=== PATIENT | female | born 1950 | race Caucasian/White ===

== ENCOUNTER → 2018-02-23 | Outpatient (CLI) | payer MEDICARE, OTHER ==
[~2018-02-23] MED LIST: CETI5 PO; CONEST.625 PO; CYCL10 PO; HYDACE5325 PO; LEVSOD75; LEVSOD75 PO; NAPR500 PO; OMEPRAZOLE; OXYACE5T PO; PANT40 PO; ROSU5 PO; SERT50 PO; STOMACH MED; SYNTHROID; THYROID MED; VENL75 PO; VENL75ER PO
== END | disposition home or self-care (01) ==
LOC: OLS 15:43 → LAB SHORT 15:43
DX: N89.8 Other specified noninflammatory disorders of vagina (principal)
CPT/HCPCS: 87070; 87205

== ENCOUNTER 2018-03-22 11:45 | Day surgery (SDC) | payer MEDICARE, OTHER ==
[~2018-03-22] VITALS: Ht 162.6 cm; Wt 103.8 kg
[2018-03-22] MEDS ORDERED: AMIT50 PO (12:06)
[2018-03-22] MEDS ORDERED: Percocet 2.5-31 EACH PO (12:07)
== END 2018-03-22 14:34 | disposition home or self-care (01) ==
LOC: ORSCSDS 11:45
PROVIDERS: Internal Medicine Gastroenterology
PROC: 0DBL8ZX Excision of Transverse Colon, Via Natural or Artificial Opening Endoscopic, Diagnostic (ICD-10-PCS; principal; 2018-03-22 13:00)
DX: Z12.11 Encounter for screening for malignant neoplasm of colon (principal); D12.3 Benign neoplasm of transverse colon; K57.30 Diverticulosis of large intestine without perforation or abscess without bleeding; Z86.010 Personal history of colon polyps; Z80.0 Family history of malignant neoplasm of digestive organs
CPT/HCPCS: 88305; J2405; J7120

== ENCOUNTER 2019-09-09 23:00 | Emergency (ER) | payer MEDICARE, OTHER ==
[~2019-09-09] VITALS: Ht 162.6 cm; Wt 99.8 kg
[~2019-09-09 23:00] MED LIST changes: +AMIT50 PO; +Percocet 2.5-31 EACH PO
[2019-09-10] MEDS ORDERED: VENLAFAXINE HCL75 MG PO (02:02)
== END 2019-09-10 03:00 | disposition home or self-care (01) ==
LOC: ER 23:00
DX: M25.552 Pain in left hip (principal); Z91.041 Radiographic dye allergy status; Z88.5 Allergy status to narcotic agent; Z79.899 Other long term (current) drug therapy
CPT/HCPCS: 73502; 96372; 99283-25; J1885

== ENCOUNTER → 2022-10-21 | Outpatient (CLI) | payer MEDICARE, OTHER ==
[~2022-10-21] MED LIST changes: +VENLAFAXINE HCL75 MG PO
== END | disposition home or self-care (01) ==
LOC: LAB SHORT 11:45
DX: N89.8 Other specified noninflammatory disorders of vagina (principal); N94.9 Unspecified condition associated with female genital organs and menstrual cycle
CPT/HCPCS: 87070; 87077; 87106; 87147; 87186; 87205

== ENCOUNTER 2023-06-29 12:09 | Day surgery (SDC) | payer MEDICARE, OTHER ==
[~2023-06-29] VITALS: Ht 162.6 cm; Wt 101.6 kg
[2023-06-29 15:06] VITALS: BP 152/75
== END 2023-06-29 15:05 | disposition home or self-care (01) ==
LOC: ORSCSDS 12:09
PROVIDERS: Internal Medicine Gastroenterology
PROC: 0DJD8ZZ Inspection of Lower Intestinal Tract, Via Natural or Artificial Opening Endoscopic (ICD-10-PCS; principal; 2023-06-29 13:30)
DX: Z12.11 Encounter for screening for malignant neoplasm of colon (principal); Z86.010 Personal history of colon polyps; K57.30 Diverticulosis of large intestine without perforation or abscess without bleeding; K64.8 Other hemorrhoids; K21.9 Gastro-esophageal reflux disease without esophagitis; E66.9 Obesity, unspecified; Z68.38 Body mass index [BMI] 38.0-38.9, adult; Z79.899 Other long term (current) drug therapy
CPT/HCPCS: J2704; J7120

== ENCOUNTER → 2023-08-15 | Outpatient (CLI) | payer MEDICARE, OTHER ==
[2023-08-15 12:26] LABS: BASOPHILS ABSOLUTE AUTO 0.08 K/mm3 (0.00-0.23); BASOPHILS PERCENT AUTO 1 % (0-2); EOSINOPHILS ABSOLUTE AUTO 0.25 K/mm3 (0.00-0.68); EOSINOPHILS PERCENT AUTO 3 % (0-6); Hematocrit 42.7 % (33.0-51.0); Hemoglobin 14.9 g/dL (11.5-16.0); IMMATURE GRAN ABSOLUTE AUTO 0.01 K/mm3 (0.00-0.10); IMMATURE GRAN PERCENT AUTO 0 % (0-1); LYMPHOCYTES ABSOLUTE AUTO 2.28 K/mm3 (0.84-5.20); LYMPHOCYTES PERCENT AUTO 29 % (21-46); MONOCYTES ABSOLUTE AUTO 0.62 K/mm3 (0.16-1.47); MONOCYTES PERCENT AUTO 8 % (4-13); Mean Corpuscular HGB 31.9 pg (26.0-34.0); Mean Corpuscular HGB Conc 34.9 g/dL (31.5-36.5); Mean Corpuscular Volume 91 fL (80-100); Mean Platelet Volume 10.4 fL (9.1-12.4); NEUTROPHILS ABSOLUTE AUTO 4.67 K/mm3 (1.96-9.15); NEUTROPHILS PERCENT AUTO 59 % (41-73); Platelet Count 206 K/mm3 (150-400); RDW Coefficient Variation 13.1 % (11.7-14.2); RDW Standard Deviation 42.8 fL (35.1-46.3); Red Blood Cell Count 4.67 M/mm3 (3.80-5.20); White Blood Cell Count 7.91 K/mm3 (4.00-11.30)
[2023-08-15 12:38] LABS: Albumin/Globulin Ratio 1.1 (0.8-1.8); Bilirubin, Total 0.4 mg/dL (0.1-1.0); Bun/Creatinine Ratio 19.8 (12.0-20.0); Creatinine, Blood 0.96 mg/dL (0.40-1.00); Globulin, Blood 3.7 g/dL (2.2-4.0); Potassium, Blood 4.2 mmol/L (3.5-5.5); Total Protein, Blood 7.7 g/dL (6.4-8.2)
== END ==
LOC: LAB SHORT 12:22 → LAB 12:22
PROVIDERS: Physician Assistant Medical
DX: R10.32 Left lower quadrant pain (principal)
CPT/HCPCS: 80053; 85025

== ENCOUNTER 2024-09-28 11:35 | Day surgery (SDC) | payer MEDICARE, OTHER ==
[~2024-09-28] VITALS: Ht 162.6 cm; Wt 105.0 kg
[~2024-09-28 11:35] MED LIST changes: +Balanced Salt Epinephrine Irrigation Solution 500 mL IR SCH; +Lidocaine HCl/Pf 1% 5 ML VIAL XX SCH; +Mobic15 MG PO; +Moxifloxacin HCL 0.5 MG/0.1 ML 0.4MLSYR RIGHTEYE SCH; +NS 500 ML IV ONE; +OXAYDO5 M1; +PHENYLEPHRINE\\TROPICAMIDE\\TETRACAINE OPHTHALMIC DILATING SOLN RIGHTEYE PRN; +Percocet 5-3251 EACH PO; +Povidone-Iodine 450 DROP/30 ML Solution ONE; +Povidone-Iodine 450 DROP/30 ML Solution RIGHTEYE SCH; +Tetracaine HCl/Pf 0.5% Opth Soln 4 ml ONE; +Triamcinolone Inj Susp 40 MG / ML 1ML Vial INJ SCH; +Triamcinolone Inj Susp 40 MG / ML 1ML Vial ONE
[2024-09-28] MEDS ORDERED: NS 500 ML IV ONE (12:13)
[2024-09-28] MEDS ORDERED: Midazolam HCl 1MG / ML 2ML Vial ONE (12:34)
[2024-09-28 15:36] VITALS: BP 147/77
== END 2024-09-28 13:37 | disposition home or self-care (01) ==
LOC: ORSCSDS 11:35
PROVIDERS: Ophthalmology
PROC: 08RJ3JZ Replacement of Right Lens with Synthetic Substitute, Percutaneous Approach (ICD-10-PCS; principal; 2024-09-28 13:00)
DX: H25.813 Combined forms of age-related cataract, bilateral (principal); F32.A Depression, unspecified; F41.9 Anxiety disorder, unspecified; K21.9 Gastro-esophageal reflux disease without esophagitis; E66.9 Obesity, unspecified; Z68.39 Body mass index [BMI] 39.0-39.9, adult; Z79.899 Other long term (current) drug therapy
CPT/HCPCS: J2250; J3301; J7040; V2632

== ENCOUNTER 2024-10-06 07:28 | Day surgery (SDC) | payer MEDICARE, OTHER ==
[~2024-10-06] VITALS: Ht 162.6 cm; Wt 105.5 kg
[~2024-10-06 07:28] MED LIST changes: +Lidocaine HCl/Pf 1% 5 ML VIAL ONE; +Moxifloxacin HCL 0.5 MG/0.1 ML 0.4MLSYR LEFTEYE SCH; -Moxifloxacin HCL 0.5 MG/0.1 ML 0.4MLSYR RIGHTEYE SCH; -NS 500 ML IV ONE; +PHENYLEPHRINE\\TROPICAMIDE\\TETRACAINE OPHTHALMIC DILATING SOLN LEFTEYE PRN; -PHENYLEPHRINE\\TROPICAMIDE\\TETRACAINE OPHTHALMIC DILATING SOLN RIGHTEYE PRN; +Povidone-Iodine 450 DROP/30 ML Solution LEFTEYE SCH; -Povidone-Iodine 450 DROP/30 ML Solution ONE; -Povidone-Iodine 450 DROP/30 ML Solution RIGHTEYE SCH; -Tetracaine HCl/Pf 0.5% Opth Soln 4 ml ONE
[2024-10-06] MEDS ORDERED: AMIT50 PO (08:19)
[2024-10-06] MEDS ORDERED: Midazolam HCl 1MG / ML 2ML Vial ONE (08:55)
[2024-10-06 09:37] VITALS: BP 147/71
== END 2024-10-06 09:35 | disposition home or self-care (01) ==
LOC: ORSCSDS 07:28
PROVIDERS: Ophthalmology
PROC: 08RK3JZ Replacement of Left Lens with Synthetic Substitute, Percutaneous Approach (ICD-10-PCS; principal; 2024-10-06 09:00)
DX: H25.812 Combined forms of age-related cataract, left eye (principal); Z96.1 Presence of intraocular lens; F41.9 Anxiety disorder, unspecified; F32.A Depression, unspecified; K21.9 Gastro-esophageal reflux disease without esophagitis; E66.9 Obesity, unspecified; Z68.39 Body mass index [BMI] 39.0-39.9, adult; Z79.899 Other long term (current) drug therapy
CPT/HCPCS: J2003; J2250; J3301; V2632

== ENCOUNTER 2025-03-28 09:25 | Day surgery (SDC) | payer MEDICARE, OTHER ==
[2025-03-28] VITALS (20 sets, daily range): BP systolic 106–165; BP diastolic 47–91
[~2025-03-28] VITALS: Ht 162.6 cm; Wt 102.8 kg
[~2025-03-28 09:25] MED LIST changes: -Balanced Salt Epinephrine Irrigation Solution 500 mL IR SCH; +Calcium Carbon500 MG PO; -Lidocaine HCl/Pf 1% 5 ML VIAL ONE; -Lidocaine HCl/Pf 1% 5 ML VIAL XX SCH; -Moxifloxacin HCL 0.5 MG/0.1 ML 0.4MLSYR LEFTEYE SCH; -PHENYLEPHRINE\\TROPICAMIDE\\TETRACAINE OPHTHALMIC DILATING SOLN LEFTEYE PRN; -Povidone-Iodine 450 DROP/30 ML Solution LEFTEYE SCH; +SERT25 PO; -SERT50 PO; -Triamcinolone Inj Susp 40 MG / ML 1ML Vial INJ SCH; -Triamcinolone Inj Susp 40 MG / ML 1ML Vial ONE; +VITAMIN K2100 MCG; +Vitamin D1000 UNI1 PO
[2025-03-28] MEDS ORDERED: Lactated Ringer's 1,000 ML IV SCH ×2 (10:15→15:55)
[2025-03-28] MEDS ORDERED: OxyCODONE HCL 10 MG TABCR PO SCH (10:15)
[2025-03-28] MEDS ORDERED: Acetaminophen 500 MG Tab PO SCH ×2 (10:15→16:00)
[2025-03-28] MEDS ORDERED: Chlorhexidine Mouth Care 15 ML UDC MT SCH (10:15)
[2025-03-28] MEDS ORDERED: CeFAZolin Sodium 2,000 MG in NS 100 ML IV SCH ×3 (10:15→21:00)
[2025-03-28] MEDS ORDERED: Ropivacaine 0.5% HCl/Pf 123.125 MG,EPINEPHrine HCL 0.25 MG,Ketorolac Tromethamine 15 MG... INFIL SCH (10:15)
[2025-03-28] MEDS ORDERED: Tranexamic Acid 100 ML IV SCH (10:18)
[2025-03-28] MEDS ORDERED: propofoL 20 ML IV ONE (12:35)
[2025-03-28] MEDS ORDERED: Midazolam HCl 1MG / ML 2ML Vial ONE (12:36)
[2025-03-28] MEDS ORDERED: FentaNYL Citrate 50 MCG/ML 2 ML Injection ONE ×2 (12:36→15:26)
[2025-03-28] MEDS ORDERED: HYDROmorphone HCl/Pf 1MG SYR ONE ×2 (13:35→15:34)
[2025-03-28] MEDS ORDERED: Ondansetron HCl 2 MG / ML 2ML Vial ONE (13:38)
[2025-03-28] MEDS ORDERED: Ketorolac Tromethamine 30mg Vial ONE (13:38)
[2025-03-28] MEDS ORDERED: Dexamethasone Sod Phos 10 MG/ML 1ML VIAL ONE (13:38)
[2025-03-28] MEDS ORDERED: Sugammadex Sodium 200 MG/2ML SDV (100 MG/ML) ONE (13:39)
[2025-03-28] MEDS ORDERED: Phenylephrine HCl 100 MCG/ML-NS 10MLSYR (1MG/10ML) ONE (14:22)
[2025-03-28] MEDS ORDERED: Promethazine HCl 25 MG Tab PO PRN (15:55)
[2025-03-28] MEDS ORDERED: DiphenhydrAMINE HCL 25 MG Cap PO PRN (15:55)
[2025-03-28] MEDS ORDERED: HYDROmorphone HCl/Pf 1MG SYR IV PRN (15:55)
[2025-03-28] MEDS ORDERED: Metoclopramide HCl 5MG / ML 2ML Vial IV PRN (15:55)
[2025-03-28] MEDS ORDERED: OxyCODONE HCL 5 MG TAB PO PRN ×2 (15:55)
[2025-03-28] MEDS ORDERED: Ondansetron HCl 2 MG / ML 2ML Vial IV PRN (15:55)
--- NOTE | 2025-03-28 16:20 | NUR ---
ARRIVAL TO SURGICAL UNIT ARRIVED TO UNIT VIA HOSP BED. HRR, LUNGS CLEAR. PT STATES PAIN 6, MEDICATED PER EMAR. INCISION SITE WNL, AQUACEL DRESSING WITH MAGALI WRAP COVERING INCISION, NO DRAINAGE. COLD THERAPY APPLIED. SNACKS AND DRINKS GIVEN.
[2025-03-28] MEDS ORDERED: Ketorolac Tromethamine 30mg Vial IV SCH (18:00)
[2025-03-28] MEDS ORDERED: ASPI81CH PO (18:30)
--- NOTE | 2025-03-28 19:01 | NUR ---
DISCHARGE SUMMARY PT TOLERATING FLUIDS AND FOOD WELL. PAIN CONTROLLED WELL. AMBULATED IN HALLWAY w/ WALKER. VOIDED SUCCESSFULLY. PT COMFORTABLE WITH AMBULATION FOR HOME. INCISION SITE WNL, AQUACEL AND MAGALI BANDAGE WNL. AQUACEL DRESSINGS GIVEN. DC EDUCATION DISCUSSED AND GIVEN. PT ESCORTED OUT VIA WC.
[2025-03-28] MEDS ORDERED: Docusate Sodium 100 MG Cap PO SCH (21:00)
[2025-03-29] MEDS ORDERED: Aspirin 81 MG Chew PO SCH (09:00)
== END 2025-03-28 18:45 | disposition home or self-care (01) ==
LOC: ORSCMMR 09:25 → ORD 11:00 → SURS 15:50 → ORSCMMR 15:50 → SURS 18:45
PROVIDERS: Orthopaedic Surgery
PROC: 0SRD0JA Replacement of Left Knee Joint with Synthetic Substitute, Uncemented, Open Approach (ICD-10-PCS; principal; 2025-03-28 11:00)
DX: M17.12 Unilateral primary osteoarthritis, left knee (principal); K21.9 Gastro-esophageal reflux disease without esophagitis; E03.9 Hypothyroidism, unspecified; E66.9 Obesity, unspecified; Z68.38 Body mass index [BMI] 38.0-38.9, adult; F41.9 Anxiety disorder, unspecified; F32.A Depression, unspecified; Z79.899 Other long term (current) drug therapy
CPT/HCPCS: 73560-LT; A9270; C1713; C1776; J0171; J0690; J0735; J1100; J1171; J1885; J2250; J2371; J2405; J2704; J2795; J3010; J7120

== ENCOUNTER 2025-05-07 07:18 | Emergency (ER) | payer OTHER, MEDICARE ==
[~2025-05-07] VITALS: Ht 162.6 cm; Wt 90.7 kg
[2025-05-07] VITALS (8 sets, daily range): BP systolic 137–163; BP diastolic 67–95
[~2025-05-07 07:18] MED LIST changes: +ASPI81CH PO
[2025-05-07] MEDS ORDERED: OXYCODONE-ACET1 EAC3 PO (07:49)
[2025-05-07] MEDS ORDERED: Venlafaxine HCl75 M1 PO (07:50)
[2025-05-07] MEDS ORDERED: Bupivacaine 0.5% HCl 5 MG/ML 30MLVIAL ONE (10:52)
[2025-05-07] MEDS ORDERED: Vancomycin HCl 1000 MG ADDvantage ONE (10:52)
--- NOTE | 2025-05-07 12:43 | NUR ---
patinet into pacu pre-procedure. History, Chart, Medications and Allergies reviewed before start of procedure.Patient confirms NPO status and agrees with scheduled surgery. left knee with dressing in place serious drainage down left calf.
[2025-05-07] MEDS ORDERED: Lactated Ringer's 1,000 ML IV SCH (12:55)
[2025-05-07] MEDS ORDERED: HYDROmorphone HCl/Pf 1MG SYR IV PRN (12:55)
[2025-05-07] MEDS ORDERED: Prochlorperazine Edisylate 10 mg Vial IV PRN (12:55)
[2025-05-07] MEDS ORDERED: FentaNYL Citrate 50 MCG/ML 2 ML Injection IV PRN (12:55)
[2025-05-07] MEDS ORDERED: Albuterol 2.5 MG/3 ML VIAL INH PRN (12:55)
[2025-05-07] MEDS ORDERED: CeFAZolin Sodium 2,000 MG in NS 100 ML IV SCH (12:55)
[2025-05-07] MEDS ORDERED: propofoL 20 ML IV ONE ×2 (13:02→13:46)
[2025-05-07] MEDS ORDERED: Dexamethasone Sod Phos 10 MG/ML 1ML VIAL ONE (13:02)
[2025-05-07] MEDS ORDERED: Ondansetron HCl 2 MG / ML 2ML Vial ONE (13:02)
[2025-05-07] MEDS ORDERED: FentaNYL Citrate 50 MCG/ML 2 ML Injection ONE (13:02)
[2025-05-07] MEDS ORDERED: Ketorolac Tromethamine 30mg Vial ONE (13:02)
[2025-05-07] MEDS ORDERED: CeFAZolin Sodium 1000 mg Vial ONE (13:03)
[2025-05-07] MEDS ORDERED: OxyCODONE 5 mg/Acetamin 325 mg TABLET PO PRN (14:25)
--- NOTE | 2025-05-07 15:18 | NUR ---
Discharge instructions reviewed with patient. Patient verbalizes understanding. Copy given to patient to take home. Discharged via wheelchair to private car for ride home. DAUGHTER TO CALL DR. RESENDIZ IN AM TO ADDRESS FOLLOW UP NEEDED.
== END 2025-05-07 12:20 | disposition home or self-care (01) ==
LOC: ER 07:18
DX: T81.31XA Disruption of external operation (surgical) wound, not elsewhere classified, initial encounter (principal); E03.9 Hypothyroidism, unspecified; K21.9 Gastro-esophageal reflux disease without esophagitis; Z96.652 Presence of left artificial knee joint; Z91.041 Radiographic dye allergy status; Z88.1 Allergy status to other antibiotic agents; Z88.5 Allergy status to narcotic agent; Z79.82 Long term (current) use of aspirin; Z79.899 Other long term (current) drug therapy; W01.0XXA Fall on same level from slipping, tripping and stumbling without subsequent striking against object, initial encounter
CPT/HCPCS: 73562-LT; 99284-25; A9270; J0690; J1100; J1885; J2405; J2704; J3010; J3370

== ENCOUNTER 2025-09-19 08:43 | Day surgery (SDC) | payer MEDICARE, OTHER ==
[2025-08-31 08:51] VITALS: BP 133/63
[2025-09-19] VITALS (13 sets, daily range): BP systolic 111–138; BP diastolic 55–84
[~2025-09-19] VITALS: Ht 162.6 cm; Wt 98.9 kg
[~2025-09-19 08:43] MED LIST changes: +CeFAZolin Sodium 2,000 MG in NS 100 ML IV SCH; +Chlorhexidine Mouth Care 15 ML UDC MT SCH; +OXYC5 PO; +OXYCODONE-ACET1 EAC3 PO; +Premarin0.3 MG PO; +Ropivacaine 0.5% HCl/Pf 123.125 MG,EPINEPHrine HCL 0.25 MG,Ketorolac Tromethamine 15 MG... INFIL SCH; +Tranexamic Acid 100 ML IV SCH; +Venlafaxine HCl75 M1 PO
[2025-09-19] MEDS ORDERED: ASPI81CH PO (09:06)
[2025-09-19] MEDS ORDERED: Ondansetron HCl 2 MG / ML 2ML Vial IV PRN ×2 (09:30→10:35)
[2025-09-19] MEDS ORDERED: FentaNYL Citrate 50 MCG/ML 2 ML Injection IV PRN ×2 (09:30→09:35)
[2025-09-19] MEDS ORDERED: Prochlorperazine Edisylate 10 mg Vial IV PRN (09:30)
[2025-09-19] MEDS ORDERED: Albuterol 2.5 MG/3 ML VIAL INH PRN (09:30)
[2025-09-19] MEDS ORDERED: HYDROmorphone HCl/Pf 1MG SYR IV PRN ×2 (09:35→10:30)
[2025-09-19] MEDS ORDERED: Phenylephrine HCl 100 MCG/ML-NS 10MLSYR (1MG/10ML) ONE (09:39)
[2025-09-19] MEDS ORDERED: Magnesium Hydroxide Conc 10 ML UDC PO PRN (10:25)
[2025-09-19] MEDS ORDERED: Metoclopramide HCl 5MG / ML 2ML Vial IV PRN (10:25)
[2025-09-19] MEDS ORDERED: FLU VACC TS2025(65UP)/MF59C/PF 45 MCG/0.5 ML SYRINGE IM SCH (10:30)
--- NOTE | 2025-09-19 10:54 | NUR ---
Ambulatory in Day Surgery, accompanied by her daughter Billie. History, Chart, Medications and Allergies reviewed before start of procedure. Patient confirms NPO status and agrees with scheduled surgery. Pre-Op teaching done. Pt verbalizes understanding. Patient States Post-Procedure ride home has been arranged. Pt belongings placed underneath gurney for safekeeping. Pt glasses and top/bottom dentures taken to PACU for safekeeping.
[2025-09-19] MEDS ORDERED: Ondansetron HCl 2 MG / ML 2ML Vial ONE (11:11)
[2025-09-19] MEDS ORDERED: Dexamethasone Sod Phos 10 MG/ML 1ML VIAL ONE (11:11)
[2025-09-19] MEDS ORDERED: Ketorolac Tromethamine 15mg Vial IV SCH (12:00)
--- NOTE | 2025-09-19 13:30 | NUR ---
ARRIVAL TO UNIT PT ARRIVED TO UNIT AT APPROX 1330. PT IS A/OX4. PT GLASSES AND DENTURES IN ROOM. SNACKS PROVIDED. FAMILY IN ROOM. CALL LIGHT IN REACH AND EXPLAINED. ASSESSMENT CHARTED.
--- NOTE | 2025-09-19 16:03 | NUR ---
DISCHARGE NOTE PT IS A/OX4. PT IS ON RA SATTING ABOVE 95%. PT WORKED W/ PHYSICAL THERAPY. TOLERATING PO INTAKE DENIES N/V. PT IS SBA W/ FWW AND GB. PERSONAL BELONGINGS TAKEN W/ FAMILY. PT AND FAMILY VERBALIZED UNDERSTANDING OF DC EDUCATION. PT TAUGHT BACK EDUCATION ON INCENTIVE SPIROMETER. ESCORTED OUT VIA WC AT 1400.
[2025-09-19] MEDS ORDERED: CeFAZolin Sodium 2,000 MG in NS 100 ML IV SCH (18:00)
== END 2025-09-19 16:05 | disposition home or self-care (01) ==
LOC: ORSCMMR 08:43 → ORD 10:00 → SURS 13:12 → ORSCMMR 16:05
PROVIDERS: Orthopaedic Surgery
PROC: 0SRC0J9 Replacement of Right Knee Joint with Synthetic Substitute, Cemented, Open Approach (ICD-10-PCS; principal; 2025-09-19 10:00)
DX: M17.11 Unilateral primary osteoarthritis, right knee (principal); F41.9 Anxiety disorder, unspecified; F32.A Depression, unspecified; K21.9 Gastro-esophageal reflux disease without esophagitis; E66.9 Obesity, unspecified; Z68.37 Body mass index [BMI] 37.0-37.9, adult; Z79.82 Long term (current) use of aspirin; Z79.899 Other long term (current) drug therapy
CPT/HCPCS: 73560-RT; 97116; 97162; 97530; A9270; C1713; C1776; J0166; J0690; J0735; J1100; J1885; J2371; J2405; J2704; J2795; J7120